=== PATIENT | female | born 1950 | race Caucasian/White ===

== ENCOUNTER 2017-12-24 05:56 | Emergency (ER) | payer OTHER ==
[~2017-12-24] VITALS: Ht 180.3 cm; Wt 137.3 kg
[2017-12-24] MEDS ORDERED: LOPRESSOR50 MG PO (06:53)
[2017-12-24] MEDS ORDERED: XARELTO20 MG PO (06:53)
[2017-12-24] MEDS ORDERED: VENTOLIN HFA18 GM IH (10:02)
[2017-12-24 10:27] VITALS: BP 127/71
== END 2017-12-24 10:49 | disposition home or self-care (01) ==
LOC: EME 05:56
DX: S80.02XA Contusion of left knee, initial encounter (principal); S80.01XA Contusion of right knee, initial encounter; J20.9 Acute bronchitis, unspecified; W19.XXXA Unspecified fall, initial encounter; Y92.009 Unspecified place in unspecified non-institutional (private) residence as the place of occurrence of the external cause; E78.5 Hyperlipidemia, unspecified; I10 Essential (primary) hypertension; F41.9 Anxiety disorder, unspecified; Z86.79 Personal history of other diseases of the circulatory system; Z85.9 Personal history of malignant neoplasm, unspecified; Z88.0 Allergy status to penicillin; Z88.6 Allergy status to analgesic agent; Z88.1 Allergy status to other antibiotic agents
CPT/HCPCS: 71046; 73564; 94640; 99281; 99284; J1100

== ENCOUNTER 2018-02-06 09:01 | Emergency (ER) | payer OTHER ==
[~2018-02-06] VITALS: Ht 170.2 cm; Wt 137.7 kg
[~2018-02-06 09:01] MED LIST: LOPRESSOR50 MG PO; VENTOLIN HFA18 GM IH; XARELTO20 MG PO
[2018-02-06 09:52] LABS: HEMATOCRIT 45.8 % (36.0-46.0); HEMOGLOBIN 14.8 G/DL (11.9-15.5); MCH 27.9 PG (29.0-34.0); MCHC 32.3 G/DL (30.0-36.0); MCV 86.4 FL (83-99); PLATELET COUNT 281 K/uL (156-360); RBC DIS.WIDTH-CV 13.7 % (11.8-14.6); RBC DIS.WIDTH-SD 43.3 % (39-53); WHITE BLOOD COUNT 16.3 K/uL (4.1-10.2)
[2018-02-06 09:58] LABS: INTER. NORMALIZED RATIO 1.6
[2018-02-06 10:00] LABS: PTT 29.5 SEC (25-37)
[2018-02-06 10:07] LABS: CHLORIDE 102 mEq/L (99-109); POTASSIUM 4.4 mEq/L (3.7-5.4); SODIUM 138 mEq/L (136-147)
[2018-02-06 10:09] LABS: GLUCOSE 314 mg/dL (70-99)
[2018-02-06 10:12] LABS: CREATININE 1.1 mg/dL (0.6-1.3); GFR ESTIMATE (CALCULATED) 52 mL/min/
[2018-02-06 10:13] LABS: UREA NITROGEN (BUN) 17 mg/dL (9-23)
[2018-02-06] MEDS ORDERED: VALIUM2 MG PO (12:11)
[2018-02-06 13:01] VITALS: BP 130/85
== END 2018-02-06 13:14 | disposition home or self-care (01) ==
LOC: EME → EDBD 09:01 → EME 13:14
PROVIDERS: Emergency Medicine
DX: S62.102A Fracture of unspecified carpal bone, left wrist, initial encounter for closed fracture (principal); S42.302A Unspecified fracture of shaft of humerus, left arm, initial encounter for closed fracture; W19.XXXA Unspecified fall, initial encounter; I10 Essential (primary) hypertension; E11.9 Type 2 diabetes mellitus without complications; Z79.01 Long term (current) use of anticoagulants; Z86.79 Personal history of other diseases of the circulatory system; Z88.6 Allergy status to analgesic agent; Z88.5 Allergy status to narcotic agent; Z88.0 Allergy status to penicillin
CPT/HCPCS: 73060; 80048; 85027; 85610; 85730; 99281; 99285; G8978 GP CJ; G8979 GP CI; G8987 GO CL; G8988 GO CK